=== PATIENT | male | born 1965 | race African-American/Black ===

== ENCOUNTER 2017-01-03 03:37 | Inpatient (IN) | payer MEDICARE, MEDICAID ==
[~2017-01-03] VITALS: Ht 165.1 cm; Wt 82.7 kg
[2017-01-03] MEDS ORDERED: FUROSEMIDE 40MG/4ML VIAL IV STA (04:52)
[2017-01-03 05:14] LABS: BASOPHILS % 0.6 % (0.0-2.0); EOSINOPHILS % 1.7 % (0.0-5.0); HEMATOCRIT. 42.3 % (42.0-52.0); HEMOGLOBIN. 14.2 g/dL (14.0-18.0); LYMPHOCYTES % 9.5 % (20.0-50.0); MEAN CORPUSCULAR HEMOGLOBIN 34.2 pg (28.0-32.0); MEAN CORPUSCULAR VOLUME 101.7 fL (80.0-94.0); MEAN PLATELET VOLUME 8.2 fl (7.4-10.4); MONOCYTES % 4.3 % (2.0-8.0); NEUTROPHILS % 83.9 % (40.0-76.0); PLATELET 222 x1000/uL (130-400); RED BLOOD CELL COUNT 4.17 mill/uL (4.7-6.1); RED CELL DISTRIBUTION WIDTH 14.2 % (11.6-14.6)
[2017-01-03 05:31] LABS: CARBON DIOXIDE 27 mEq/L (21-32); CHLORIDE 108 mEq/L (98-107); TROPONIN I 0.08 ng/mL (0.00-0.04)
[2017-01-03 08:15] VITALS: BP 153/102
[2017-01-03] MEDS ORDERED: HYDR-519 PO (08:57)
[2017-01-03] MEDS ORDERED: ASPI-1159 PO (08:57)
[2017-01-03] MEDS ORDERED: FURO-152 PO (08:57)
[2017-01-03] MEDS ORDERED: LISI40TA4 PO (08:57)
[2017-01-03] MEDS ORDERED: CARV25TA47 PO (08:57)
[2017-01-03] MEDS ORDERED: IPRATROPIUM/ALBUTEROL 0.5-3(2.5)MG/3ML NEB INH PRN (09:45)
[2017-01-03] MEDS ORDERED: GUAIFENESIN 200MG/10ML SUGAR FREE UDC PO PRN (09:45)
[2017-01-03] MEDS ORDERED: NITROGLYCERIN 0.4MG TABLET SL SL PRN (09:45)
[2017-01-03] MEDS ORDERED: MORPHINE SULFATE 4 MG/ML CPJ (NOT FOR IM USE) IV PRN (09:45)
[2017-01-03] MEDS ORDERED: ZOLPIDEM TARTRATE 5MG TABLET PO PRN (09:45)
[2017-01-03] MEDS ORDERED: ONDANSETRON HCL 4MG/2ML VIAL IV PRN (09:45)
[2017-01-03] MEDS ORDERED: DIPHENHYDRAMINE 50MG/ML VIAL IV PRN (09:45)
[2017-01-03] MEDS ORDERED: CLONIDINE 0.1MG TABLET PO PRN (09:45)
[2017-01-03] MEDS ORDERED: LORAZEPAM 2MG/ML CPJ IV PRN (09:45)
[2017-01-03] MEDS ORDERED: NA PHOS,M-B/NA PHOS,DI-BA ENEMA 118ML PR PRN (09:45)
[2017-01-03] MEDS ORDERED: ACETAMINOPHEN 325MG TABLET PO PRN (09:45)
[2017-01-03] MEDS ORDERED: MAGNESIUM/ALUMINUM HYDROXIDE/SIMETHICONE 30ML UDC PO PRN (09:45)
[2017-01-03] MEDS: ASPIRIN 325MG EC TABLET PO SCH (10:50)
[2017-01-03] MEDS: LISINOPRIL 20MG TABLET PO SCH ×2 (10:50→21:57)
[2017-01-03] MEDS: CARVEDILOL 3.125 MG TABLET PO SCH ×2 (10:50→21:58)
[2017-01-03] MEDS: ENOXAPARIN 40MG/0.4ML SYR SUBCUT SCH (10:51)
[2017-01-03 11:46] LABS: *AMPHETAMINES SCREEN URINE NEGATIVE (NEGATIVE); *BARBITURATES SCREEN URINE NEGATIVE (NEGATIVE); *BENZODIAZEPINES SCREEN URINE NEGATIVE (NEGATIVE); *COCAINE SCREEN URINE PRESUMTIVE POSITIVE (NEGATIVE); CANNABINOID URINE SCREEN NEGATIVE (NEGATIVE); METHADONE URINE SCREEN NEGATIVE (NEGATIVE); OPIATES URINE SCREEN NEGATIVE (NEGATIVE); PHENCYCLIDINE URINE SCREEN PRESUMTIVE POSITIVE (NEGATIVE)
[2017-01-03 12:00] VITALS: BP 154/80
[2017-01-03] MEDS: SUCRALFATE 1 G/10 ML UDC PO SCH ×3 (13:42→21:57)
[2017-01-03 16:00] VITALS: BP 131/84
[2017-01-03] MEDS: FUROSEMIDE 40MG/4ML VIAL IV SCH (18:25)
[2017-01-03] MEDS: SPIRONOLACTONE 25MG TABLET PO SCH (18:25)
[2017-01-03 19:42] LABS: TROPONIN I 0.07 ng/mL (0.00-0.04)
[2017-01-03 19:44] LABS: CREATINE KINASE MB FRACTION 2.1 ng/mL (0.5-3.6)
[2017-01-03 19:50] LABS: FOLIC ACID (FOLATE) SERUM 10.4 ng/mL (>5.38)
[2017-01-03 20:00] VITALS: BP 136/90
[2017-01-04] VITALS: BP 128/88
[2017-01-04 03:50] LABS: CREATINE KINASE MB FRACTION 1.6 ng/mL (0.5-3.6); TROPONIN I 0.07 ng/mL (0.00-0.04)
[2017-01-04 04:00] VITALS: BP 142/90
[2017-01-04] MEDS: FUROSEMIDE 40MG/4ML VIAL IV SCH ×2 (06:35→17:27)
[2017-01-04] MEDS: SUCRALFATE 1 G/10 ML UDC PO SCH ×4 (06:35→20:44)
[2017-01-04] MEDS: SPIRONOLACTONE 25MG TABLET PO SCH ×2 (06:35→17:28)
[2017-01-04 08:02] VITALS: BP 121/81
[2017-01-04] MEDS: ENOXAPARIN 40MG/0.4ML SYR SUBCUT SCH (09:51)
[2017-01-04] MEDS: LISINOPRIL 20MG TABLET PO SCH ×2 (09:51→20:45)
[2017-01-04] MEDS: ASPIRIN 325MG EC TABLET PO SCH (09:51)
[2017-01-04] MEDS: CARVEDILOL 3.125 MG TABLET PO SCH ×2 (09:51→20:45)
[2017-01-04 12:26] VITALS: BP 104/71
[2017-01-04 16:59] VITALS: BP 120/82
[2017-01-04] MEDS: TRAMADOL 50MG TABLET PO PRN (17:28)
[2017-01-04] MEDS: DOCUSATE SODIUM 100MG CAPSULE PO PRN (18:11)
[2017-01-04 20:00] VITALS: BP 135/90
[2017-01-04 20:07] LABS: CHLORIDE 101 mEq/L (98-107)
[2017-01-04 20:13] LABS: CARBON DIOXIDE 27 mEq/L (21-32)
[2017-01-05] VITALS: BP 109/78
[2017-01-05 04:00] VITALS: BP 124/85
[2017-01-05] MEDS: SPIRONOLACTONE 25MG TABLET PO SCH ×2 (05:40→17:43)
[2017-01-05] MEDS: FUROSEMIDE 40MG/4ML VIAL IV SCH ×2 (05:40→17:42)
[2017-01-05] MEDS: DOCUSATE SODIUM 100MG CAPSULE PO PRN (06:01)
[2017-01-05] MEDS: TRAMADOL 50MG TABLET PO PRN (06:04)
[2017-01-05] MEDS: SUCRALFATE 1 G/10 ML UDC PO SCH ×4 (07:03→21:40)
[2017-01-05] MEDS: ENOXAPARIN 40MG/0.4ML SYR SUBCUT SCH (08:25)
[2017-01-05] MEDS: ASPIRIN 325MG EC TABLET PO SCH (08:25)
[2017-01-05] MEDS: LISINOPRIL 20MG TABLET PO SCH (08:25)
[2017-01-05] MEDS: CARVEDILOL 3.125 MG TABLET PO SCH (08:29)
[2017-01-05 08:30] VITALS: BP 110/82
[2017-01-05] MEDS ORDERED: LACTULOSE 20G/30ML UDC PO PRN (11:00)
[2017-01-05] MEDS ORDERED: LACTULOSE 20G/30ML UDC PO SCH (11:00)
[2017-01-05 12:00] VITALS: BP 106/78
[2017-01-05] MEDS: AMLODIPINE 2.5MG TABLET PO SCH (12:02)
[2017-01-05 16:00] VITALS: BP 114/82
[2017-01-05 16:43] LABS: CARBON DIOXIDE 25 mEq/L (21-32); CHLORIDE 101 mEq/L (98-107)
[2017-01-05 20:00] VITALS: BP 115/84
[2017-01-06] VITALS: BP 110/79
[2017-01-06 04:00] VITALS: BP 107/77
[2017-01-06] MEDS: FUROSEMIDE 40MG/4ML VIAL IV SCH (05:33)
[2017-01-06] MEDS: SUCRALFATE 1 G/10 ML UDC PO SCH ×2 (05:39→09:56)
[2017-01-06] MEDS: SPIRONOLACTONE 25MG TABLET PO SCH (05:39)
[2017-01-06 06:27] LABS: BASOPHILS % 0.6 % (0.0-2.0); EOSINOPHILS % 4.5 % (0.0-5.0); HEMATOCRIT. 45.5 % (42.0-52.0); HEMOGLOBIN. 15.5 g/dL (14.0-18.0); LYMPHOCYTES % 19.5 % (20.0-50.0); MEAN CORPUSCULAR HEMOGLOBIN 34.4 pg (28.0-32.0); MEAN CORPUSCULAR VOLUME 101.4 fL (80.0-94.0); MEAN PLATELET VOLUME 9.5 fl (7.4-10.4); MONOCYTES % 10.8 % (2.0-8.0); NEUTROPHILS % 64.6 % (40.0-76.0); PLATELET 226 x1000/uL (130-400); RED BLOOD CELL COUNT 4.49 mill/uL (4.7-6.1)
[2017-01-06 06:34] LABS: CARBON DIOXIDE 26 mEq/L (21-32); CHLORIDE 101 mEq/L (98-107); TROPONIN I 0.06 ng/mL (0.00-0.04)
[2017-01-06 08:00] VITALS: BP 101/69
[2017-01-06] MEDS ORDERED: LISINOPRIL 20MG TABLET PO SCH (09:00)
[2017-01-06] MEDS: AMLODIPINE 2.5MG TABLET PO SCH (09:00)
[2017-01-06] MEDS: ASPIRIN 325MG EC TABLET PO SCH (09:56)
[2017-01-06] MEDS: ENOXAPARIN 40MG/0.4ML SYR SUBCUT SCH (09:56)
[2017-01-06 11:40] VITALS: BP 101/69
== END 2017-01-06 12:30 | disposition home or self-care (01) | DRG 293 ==
LOC: ER 03:55 → 6WST 05:46 → EDBEDREQ 05:57 → ENRESERV 07:06 → 6WST 01-04 16:24
PROVIDERS: ADMIT Internal Medicine; ATTEND Internal Medicine
DX: I11.0 Hypertensive heart disease with heart failure (principal); I27.2 Other secondary pulmonary hypertension; I42.0 Dilated cardiomyopathy; F14.10 Cocaine abuse, uncomplicated; I50.43 Acute on chronic combined systolic (congestive) and diastolic (congestive) heart failure; F15.10 Other stimulant abuse, uncomplicated; E66.9 Obesity, unspecified; I34.0 Nonrheumatic mitral (valve) insufficiency; F12.10 Cannabis abuse, uncomplicated; F17.210 Nicotine dependence, cigarettes, uncomplicated; Z86.73 Personal history of transient ischemic attack (TIA), and cerebral infarction without residual deficits; Z79.82 Long term (current) use of aspirin; Z68.30 Body mass index [BMI] 30.0-30.9, adult; Z79.899 Other long term (current) drug therapy
CPT/HCPCS: 36415; 71010; 80048; 80053; 80061; 80305; 82550; 82553; 82607; 82746; 83036; 83735; 83880; 84484; 85025; 93005; 93306; 93970; 96374; 99285; J1650; J1940